=== PATIENT | female | born 1985 ===

== ENCOUNTER 2020-12-31 12:47 | Outpatient (CLI) | payer OTHER ==
[~2020-12-31] VITALS: Ht 152.4 cm; Wt 55.5 kg
[2020-12-31 13:23] VITALS: BP 104/70
[2020-12-31 13:42] LABS: MICROSCOPIC INDICATED
== END 2020-12-31 14:16 | disposition home or self-care (01) ==
LOC: LDOP 12:47
PROVIDERS: ATTEND Obstetrics & Gynecology
DX: O42.913 Preterm premature rupture of membranes, unspecified as to length of time between rupture and onset of labor, third trimester (principal); Z3A.33 33 weeks gestation of pregnancy
CPT/HCPCS: 59025; 81001; 84112; 87086

== ENCOUNTER 2021-02-15 15:49 | Inpatient (IN) | payer OTHER ==
[~2021-02-15] VITALS: Ht 152.4 cm; Wt 59.1 kg
[2021-02-15 16:11] VITALS: BP 116/69
[2021-02-15] MEDS ORDERED: AMPICILLIN 2 GM in SODIUM CHLORIDE 0.9% 100 ML IVPB ONE (18:06)
[2021-02-15] MEDS ORDERED: MISOPROSTOL 200 MCG TABLET ONE (18:20)
[2021-02-15] MEDS ORDERED: LIDOCAINE 1%, 20ML ONE (18:20)
[2021-02-15] MEDS ORDERED: FENTANYL PF 100 MCG/2ML IVPush PRN (18:30)
[2021-02-15] MEDS ORDERED: ONDANSETRON 2MG/ML, 2ML IVPush PRN (18:30)
[2021-02-15] MEDS ORDERED: TERBUTALINE 1 MG/ML, 1ML SQ PRN (18:30)
[2021-02-15] MEDS ORDERED: FENTANYL PF 100 MCG/2ML IV PRN (18:30)
[2021-02-15] MEDS ORDERED: CALCIUM CARBONATE 500 MG TAB.CHEW PO PRN (18:30)
[2021-02-15] MEDS ORDERED: OXYTOCIN 30U/ 0.9% NaCL 500ML 500 ML IV ONE (18:30)
[2021-02-15] MEDS ORDERED: TERBUTALINE 1 MG/ML, 1ML IVPush PRN (18:30)
[2021-02-15] MEDS ORDERED: OXYTOCIN 30U/ 0.9% NaCL 500ML 500 ML IV PRN (18:30)
[2021-02-15] MEDS ORDERED: ALUMINUM/MAG/SIMETHICONE 30 ML UDC PO PRN (18:30)
[2021-02-15 18:48] LABS: BASOPHILS % (AUTO) 0 % (0-1); EOSINOPHILS % (AUTO) 1 % (1-7); LYMPHOCYTES % (AUTO) 18 % (22-44); MEAN CORPUSCULAR HEMOGLOBIN 27.8 pg (27.0-34.8); MEAN CORPUSCULAR HGB CONC 33.7 g/dL (32.4-35.8); MEAN PLATELET VOLUME 7.7 fL (7.4-10.4); MONOCYTES % (AUTO) 7 % (2-9); NEUTROPHILS % (AUTO) 74 % (42-75); PLATELET COUNT 253 x10^3/uL (130-400); RED BLOOD COUNT 4.19 x10^6/uL (3.82-5.3); RED CELL DISTRIBUTION WIDTH 14.4 % (9.6-15.2)
[2021-02-15] MEDS ORDERED: NEWBORN KIT ONE (19:01)
[2021-02-15] MEDS ORDERED: NALOXONE 0.4 MG/ML, 1ML IVPush PRN (19:30)
[2021-02-15] MEDS ORDERED: LACTATED RINGERS 1,000 ML IVBOLUS PRN (19:30)
[2021-02-15] MEDS ORDERED: LACTATED RINGERS 1,000 ML IV SCH (19:30)
[2021-02-15] MEDS ORDERED: FENTANYL/BUPIV./NS/PF 250 ML EPIDCONT SCH (19:30)
[2021-02-15] MEDS ORDERED: EPHEDRINE 50 MG/ML, 1ML IVPush PRN (19:30)
[2021-02-15] MEDS ORDERED: FENTANYL/BUPIV./NS/PF 250 ML EPIDCONT ONE (19:33)
[2021-02-15] MEDS ORDERED: BUPIVACAINE 0.25% ONE (19:33)
[2021-02-15] MEDS: AMPICILLIN 1 GM in SODIUM CHLORIDE 0.9% 100 ML IVPB SCH (22:49)
[2021-02-16] MEDS: AMPICILLIN 1 GM in SODIUM CHLORIDE 0.9% 100 ML IVPB SCH ×2 (02:37→07:01)
[2021-02-16] MEDS ORDERED: SIMETHICONE 80 MG CHEW TAB PO PRN (10:00)
[2021-02-16] MEDS ORDERED: OXYcodone IR 5MG TABLET PO PRN ×2 (10:00)
[2021-02-16] MEDS ORDERED: ONDANSETRON 2MG/ML, 2ML IV PRN (10:00)
[2021-02-16] MEDS: OXYTOCIN 30U/ 0.9% NaCL 500ML 500 ML IV SCH ×15 (10:00→21:49)
[2021-02-16] MEDS ORDERED: ACETAMINOPHEN 325 MG TABLET PO PRN (10:00)
[2021-02-16] MEDS ORDERED: MISOPROSTOL 200 MCG TABLET PR PRN (10:00)
[2021-02-16] MEDS: IBUPROFEN 600 MG TABLET PO PRN ×2 (11:04→22:16)
[2021-02-16 11:45] VITALS: BP 102/68
[2021-02-16 16:00] VITALS: BP 95/62
[2021-02-16 17:56] LABS: BASOPHILS % (AUTO) 0 % (0-1); EOSINOPHILS % (AUTO) 0 % (1-7); LYMPHOCYTES % (AUTO) 13 % (22-44); MEAN CORPUSCULAR HEMOGLOBIN 27.8 pg (27.0-34.8); MEAN CORPUSCULAR HGB CONC 33.3 g/dL (32.4-35.8); MEAN PLATELET VOLUME 7.8 fL (7.4-10.4); MONOCYTES % (AUTO) 7 % (2-9); NEUTROPHILS % (AUTO) 79 % (42-75); PLATELET COUNT 202 x10^3/uL (130-400); RED BLOOD COUNT 3.37 x10^6/uL (3.82-5.3); RED CELL DISTRIBUTION WIDTH 14.6 % (9.6-15.2)
[2021-02-16] MEDS: DOCUSATE 100 MG CAPSULE PO PRN (19:09)
[2021-02-16 19:20] VITALS: BP 119/71
[2021-02-17 01:06] VITALS: BP 96/63
[2021-02-17 03:09] VITALS: BP 95/54
[2021-02-17] MEDS: IBUPROFEN 600 MG TABLET PO PRN ×3 (06:24→20:52)
[2021-02-17 07:35] VITALS: BP 95/63
[2021-02-17] MEDS: PRENATAL VIT/IRON/FA 1 EACH TABLET PO SCH (12:25)
[2021-02-17] MEDS: DOCUSATE 100 MG CAPSULE PO PRN (12:25)
[2021-02-17 19:30] VITALS: BP 103/69
[2021-02-18 07:40] VITALS: BP 109/72
[2021-02-18] MEDS: PRENATAL VIT/IRON/FA 1 EACH TABLET PO SCH (08:35)
[2021-02-18] MEDS: DOCUSATE 100 MG CAPSULE PO PRN (08:35)
[2021-02-18] MEDS: IBUPROFEN 600 MG TABLET PO PRN (08:35)
== END 2021-02-18 11:10 | disposition home or self-care (01) | DRG 806 ==
LOC: LDOP 15:49 → LDIP 18:07 → 2NW 02-16 11:30
PROVIDERS: ADMIT Obstetrics & Gynecology; ATTEND Obstetrics & Gynecology
PROC: 10D07Z6 Extraction of Products of Conception, Vacuum, Via Natural or Artificial Opening (ICD-10-PCS; principal; 2021-02-16)
PROC: 0W8NXZZ Division of Female Perineum, External Approach (ICD-10-PCS; 2021-02-16)
PROC: 3E0R3BZ Introduction of Anesthetic Agent into Spinal Canal, Percutaneous Approach (ICD-10-PCS; 2021-02-16)
PROC: 00HU33Z Insertion of Infusion Device into Spinal Canal, Percutaneous Approach (ICD-10-PCS; 2021-02-16)
DX: O63.1 Prolonged second stage (of labor) (principal); O72.1 Other immediate postpartum hemorrhage; Z37.0 Single live birth; O69.81X0 Labor and delivery complicated by cord around neck, without compression, not applicable or unspecified; O76 Abnormality in fetal heart rate and rhythm complicating labor and delivery; O99.824 Streptococcus B carrier state complicating childbirth; Z3A.39 39 weeks gestation of pregnancy; Z20.822 Contact with and (suspected) exposure to COVID-19
CPT/HCPCS: 36415; 85025; 86592; 86850; 86900; 87635; 89060; G0378; J0290; J2590; Q0114